=== PATIENT | male | born 1985 | race Caucasian/White ===

== ENCOUNTER 2018-07-10 17:23 | Emergency (ER) | payer OTHER ==
[~2018-07-10] VITALS: Ht 172.7 cm; Wt 111.1 kg
--- NOTE | 2018-07-10 18:02 | ED.ADGEN ---
Past History Past Medical History: Other Past Surgical History: No Surgical History Additional Smoking Information: STATES HE "VAPES" AND CHEWS TOBACCO Alcohol Use: None Drug Use: None Adult General Chief Complaint Chief Complaint ".. I woke up with a cold.. and a really bad ear ache on Lt. ...".. " I got bad ears anyway.... hearing problems.." HPI HPI Patient is a 33 year old male who presents with above hx and complaints of on set of head cold and severe Lt ear pain in last 24 hrs. No recent travel, specific ill contacts or recent swim or water immersion. Hx. of tinnitus and hearing loss prior to recent head cold. No history immunosuppression. Normally healthy. Review of Systems Review of Systems Constitutional: Denies fever or chills [] Eyes: Denies change in visual acuity, redness, or eye pain [] HENT: History of nasal congestion , sore throat and Lt ear ache. Respiratory: Denies cough or shortness of breath [] Cardiovascular: No additional information not addressed in HPI [] GI: Denies abdominal pain, nausea, vomiting, bloody stools or diarrhea [] : Denies dysuria or hematuria [] Musculoskeletal: Denies back pain or joint pain [] Integument: Denies rash or skin lesions [] Neurologic: Denies headache, focal weakness or sensory changes [] Endocrine: Denies polyuria or polydipsia [] All other systems were reviewed and found to be within normal limits, except as documented in this note. Family History Family History Noncontributory Current Medications Current Medications Current Medications Medications (Trade) Dose Ordered Sig/Virgen Start Time Stop Time Status Last Admin Dose Admin Cephalexin HCl (Keflex) 500 mg 1X ONCE 07/10/18 18:15 07/10/18 18:16 DC 07/10/18 18:25 500 MG Hydrocodone Bitartrate/ Ibuprofen (Vicoprofen 7.5-200) 2 tab 1X ONCE 07/10/18 18:15 07/10/18 18:16 DC 07/10/18 18:26 2 TAB Neomycin/ Polymyxin/ Hydrocortisone (Cortisporin Otic) 2 drop 1X ONCE 07/10/18 18:15 07/10/18 18:16 DC 07/10/18 18:27 2 DROP Allergies Allergies Allergies Coded Allergies Type Severity Reaction Last Updated Verified No Known Drug Allergies 07/10/18 No Physical Exam Physical Exam Constitutional: Well developed, well nourished, elderly acute distress, non- toxic appearance. [] HENT: Normocephalic, atraumatic, right external ears normal, left canal is injected ,TM injected , oropharynx moist, mild pharyngeal injection and drainage no oral exudates, nose: Turbinates and rhinorrhea Eyes: PERRLA, EOMI, conjunctiva normal, no discharge. [] Neck: Normal range of motion, no tenderness, supple, no stridor. [] Cardiovascular:Heart rate regular rhythm, no murmur [] Lungs & Thorax: Bilateral breath sounds clear to auscultation [] Abdomen: Bowel sounds normal, soft, no tenderness, no masses, no pulsatile masses. [] Skin: Warm, dry, no erythema, no rash. [] Back: No tenderness, no CVA tenderness. [] Extremities: No tenderness, no cyanosis, no clubbing, ROM intact, no edema. [] Neurologic: Alert and oriented X 3, normal motor function, normal sensory function, no focal deficits noted. [] Psychologic: Affect anxious, judgement normal, mood normal. [] Current Patient Data Vital Signs Vital Signs Date Time Temp Pulse Resp B/P (MAP) Pulse Ox O2 Delivery O2 Flow Rate FiO2 07/10/18 17:39 98.0 77 22 94 Room Air EKG EKG [] Radiology/Procedures Radiology/Procedures [] Course & Med Decision Making Course & Med Decision Making Pertinent Labs and Imaging studies reviewed. (See chart for details) Patient to use Cortisporin ear drops 2 drops to left ear 4 times a day. Patient take Keflex 500 mg 3 times a day. Patient take [id number] Tylenol and ibuprofen for pain. Patient may try to use Benadryl 50 mg up 4 times a day for congestion. Follow-up primary care. Must have left ear re-evaluated after treatment. 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 Return if any concerns. [] Final Impression Final Impression 1. Otitis Lt. 2. Upper Respiratory Infection[] Dragon Disclaimer Dragon Disclaimer This electronic medical record was generated, in whole or in part, using a voice recognition dictation system. Discharge Summary Visit Information Final Diagnosis Problems Medical Problems: (1) Otitis Status: Acute Brief Hospital Course Allergies Allergies Coded Allergies Type Severity Reaction Last Updated Verified No Known Drug Allergies 07/10/18 No Vital Signs Vital Signs Date Time Temp Pulse Resp B/P (MAP) Pulse Ox O2 Delivery O2 Flow Rate FiO2 07/10/18 17:39 98.0 77 22 94 Room Air Brief Hospital Course Mr. Chicas is a 33 old male who presented with Lt. ear otitis Discharge Information Condition at Discharge: Improved, Stable Disposition/Orders: D/C to Home Dischare Medications Current Medications Cephalexin HCl (Keflex) 500 mg 1X ONCE PO Last administered on 07/10/18at 18:25 ; Admin Dose 500 MG; Start 07/10/18 at 18:15; Stop 07/10/18 at 18:16; Status DC Neomycin/ Polymyxin/ Hydrocortisone (Cortisporin Otic) 2 drop 1X ONCE Last administered on 07/10/18at 18:27; Admin Dose 2 DROP; Start 07/10/18 at 18:15; Stop 07/10/18 at 18:16; Status DC Hydrocodone Bitartrate/ Ibuprofen (Vicoprofen 7.5-200) 2 tab 1X ONCE PO Last administered on 07/10/18at 18:26; Admin Dose 2 TAB; Start 07/10/18 at 18:15; Stop 07/10/18 at 18:16; Status DC Active Scripts Active Keflex (Cephalexin) 500 Mg Capsule 500 Mg PO TID 1 Days Marsha Disclaimer This chart was dictated in whole or in part using Voice Recognition software in a busy, high-work load, and often noisy Emergency Department environment. It may contain unintended and wholly unrecognized errors or omissions. NATANAEL AVELAR MD Jul 10, 2018 18:02
[2018-07-10] MEDS ORDERED: CEPH-264 PO (18:05)
[2018-07-10] MEDS ORDERED: CEPHALEXIN 250 MG CAPSULE PO ONE (18:15)
[2018-07-10] MEDS ORDERED: NEOMYCIN/POLYMYXIN/HC OTIC SUSPENSION 10ML BOTTLE. AS ONE (18:15)
[2018-07-10] MEDS ORDERED: HYDROcodon/IBUPROFEN 7.5/200MG 1 TAB TABLET PO ONE (18:15)
[2018-07-10 18:37] VITALS: BP 131/78
== END 2018-07-10 18:30 | disposition home or self-care (01) ==
LOC: ER 17:23
DX: J06.9 Acute upper respiratory infection, unspecified (principal); H66.92 Otitis media, unspecified, left ear; F17.220 Nicotine dependence, chewing tobacco, uncomplicated
CPT/HCPCS: 99284

== ENCOUNTER 2018-09-04 15:01 | Emergency (ER) | payer OTHER ==
[~2018-09-04] VITALS: Ht 170.2 cm; Wt 122.0 kg
[~2018-09-04 15:01] MED LIST: CEPH-264 PO
[2018-09-04] MEDS ORDERED: IV NORMAL SALINE 500ML 500 ML IV ONE (15:30)
[2018-09-04] MEDS ORDERED: IOHEXOL 300 MG/ML 75 ML VIAL. IV ONE (15:45)
[2018-09-04] MEDS ORDERED: KETOROLAC 30 MG/ML VIAL. IV ONE (15:45)
[2018-09-04 16:04] LABS: BASO # 0.1 x10^3/uL (0.0-0.2); BASO % 1 % (0-3); EOS # 0.3 x10^3/uL (0.0-0.7); EOS % 4 % (0-3); HEMATOCRIT 44.5 % (39.0-53.0); HEMOGLOBIN 15.5 g/dL (13.0-17.5); LYMPH # 1.3 x10^3/uL (1.0-4.8); LYMPH % 19 % (24-48); MEAN CORPUSCULAR HEMOGLOBIN 30 pg (25-35); MEAN CORPUSCULAR HGB CONC 35 g/dL (31-37); MEAN CORPUSCULAR VOLUME 85 fL (79-100); MONO # 0.6 x10^3/uL (0.0-1.1); MONO % 8 % (0-9); NEUT # 4.7 x10^3uL (1.8-7.7); NEUT % 68 % (31-73); PLATELET COUNT 320 x10^3/uL (140-400); RED BLOOD COUNT 5.21 x10^6/uL (4.30-5.70); RED CELL DISTRIBUTION WIDTH 13.7 % (11.5-14.5)
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
[2018-09-04 16:18] LABS: ALBUMIN 4.2 g/dL (3.4-5.0); ALBUMIN/GLOBULIN RATIO 1.2 (1.0-1.7); CALCIUM 9.4 mg/dL (8.5-10.1); CREATININE 1.1 mg/dL (0.7-1.3); GFR 76.2; POTASSIUM 3.9 mmol/L (3.5-5.1); TOTAL BILIRUBIN 0.6 mg/dL (0.2-1.0); TOTAL PROTEIN 7.8 g/dL (6.4-8.2)
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
[2018-09-04] MEDS ORDERED: MELO7.5T29 PO (17:11)
[2018-09-04] MEDS ORDERED: ORPH-16 PO (17:11)
[2018-09-04] MEDS ORDERED: SUMAtriptan SUCC 6 MG/0.5 ML VIAL SQ ONE (17:15)
[2018-09-04 17:29] LABS: BACTERIA,URINE FEW /HPF (0-FEW); BILIRUBIN,URINE NEG (NEG); CLARITY,URINE HAZY; COLOR,URINE AMBER; GLUCOSE,URINE NEG (NEG); NITRITE,URINE NEG (NEG); RBC,URINE 0 /HPF (0-2); SQUAMOUS EPITHELIAL CELL,UR OCC /LPF; UROBILINOGEN,URINE 0.2 mg/dL (0.2 mg/dL); WBC,URINE 0 /HPF (0-4)
[2018-09-04 17:32] VITALS: BP 148/69
[2018-09-04 17:37] LABS: AMPHETAMINE/METHAMPHETAMINE NEG (NEG); BARBITURATES NEG (NEG); BENZODIAZEPINES NEG (NEG); CANNABINOIDS POS (NEG); COCAINE NEG (NEG); METHADONE NEG (NEG); OPIATES NEG (NEG); PHENCYCLIDINE NEG (NEG)
== END 2018-09-04 17:32 | disposition home or self-care (01) ==
LOC: ER 15:01
DX: S46.211A Strain of muscle, fascia and tendon of other parts of biceps, right arm, initial encounter (principal); S20.219A Contusion of unspecified front wall of thorax, initial encounter; S09.8XXA Other specified injuries of head, initial encounter; G43.909 Migraine, unspecified, not intractable, without status migrainosus; R10.10 Upper abdominal pain, unspecified; Z91.030 Bee allergy status; V49.49XA Driver injured in collision with other motor vehicles in traffic accident, initial encounter; Y93.89 Activity, other specified; Y92.89 Other specified places as the place of occurrence of the external cause; Y99.8 Other external cause status
CPT/HCPCS: 36415; 70450; 71260; 72125; 74177; 80053; 80307; 81001; 83605; 83690; 85025; 85610; 85730; 86850; 86900; 86901; 96372; 96374; 99285; G0480; J1885; J3030; J7040